=== PATIENT | male | born 1985 | race Caucasian/White ===

== ENCOUNTER 2024-05-25 19:48 | Inpatient (IN) | payer OTHER ==
[2024-05-25 21:03] VITALS: BMI 28.2
[2024-05-25] MEDS ORDERED: chlordiazePOXIDE HCL 25 MG CAPSULE PO PRN (21:44)
[2024-05-25] MEDS ORDERED: BENZONATATE 200 MG CAPSULE PO PRN (21:57)
[2024-05-25] MEDS ORDERED: LOPERAMIDE HCL 2 MG CAPSULE PO PRN (21:57)
[2024-05-25] MEDS ORDERED: guaiFENesin 600 MG TABLET.ER (FP) PO PRN (21:57)
[2024-05-25] MEDS ORDERED: IBUPROFEN 600 MG TABLET (FP) PO PRN (21:57)
[2024-05-25] MEDS ORDERED: P-EPHED 60MG/TRIPROLIDI 2.5MG TABLET PO PRN (21:57)
[2024-05-25] MEDS ORDERED: BISMUTH SUBSALICYLATE 524 MG/30 ML PO PRN (21:57)
[2024-05-25] MEDS ORDERED: IBUPROFEN 400 MG TABLET (FP) PO PRN (21:57)
[2024-05-25] MEDS ORDERED: DICYCLOMINE HCL 10 MG CAPSULE PO PRN (21:57)
[2024-05-25] MEDS ORDERED: BENZOCAINE/MENTHOL (CHLORASEPTIC ) LOZENGE MM PRN (21:57)
[2024-05-25] MEDS ORDERED: NICOTINE POLACRILEX 2 MG LOZENGE BC PRN (21:57)
[2024-05-25] MEDS ORDERED: POLYETHYLENE GLYCOL (HEALTHYLAX) 3350 17 GM PACKET PO PRN (21:57)
[2024-05-25] MEDS ORDERED: MAGNESIUM HYDROX 2400MG/30ML ORAL SUSPENSION 30 ML CUP PO PRN (21:57)
[2024-05-25] MEDS ORDERED: ONDANSETRON *ODT* 4 MG TABLET SL PRN (21:57)
[2024-05-25] MEDS ORDERED: ACETAMINOPHEN 325 MG TABLET (FP) PO PRN (21:57)
[2024-05-25] MEDS ORDERED: NICOTINE POLACRILEX 2 MG GUM BUC PRN (21:57)
[2024-05-25] MEDS ORDERED: METHOCARBAMOL 500 MG TABLET PO PRN (21:57)
[2024-05-25] MEDS ORDERED: MAG HYDROX/AL HYDROX/SIMETH 30 ML UNIT-DOSE CUP PO PRN (21:57)
[2024-05-25] MEDS ORDERED: NALOXONE (NARCAN) HCL 4 MG/0.1 ML SPRAY NS PRN (21:57)
[2024-05-25] MEDS ORDERED: levETIRAcetam 500 MG TABLET (FP) PO ONE (23:46)
[2024-05-25] MEDS ORDERED: METOPROLOL TARTRATE 25 MG TABLET (FP) ONE (23:46)
[2024-05-25] MEDS ORDERED: chlordiazePOXIDE HCL 25 MG CAPSULE ONE (23:46)
[2024-05-25] MEDS: levETIRAcetam 500 MG TABLET (FP) PO SCH (23:47)
[2024-05-25] MEDS: chlordiazePOXIDE HCL 25 MG CAPSULE PO SCH (23:47)
[2024-05-25] MEDS: METOPROLOL TARTRATE 25 MG TABLET (FP) PO ONE (23:48)
[2024-05-26] MEDS: MELATONIN 5 MG TABLETS PO SCH (03:54)
[2024-05-26] MEDS: THIAMINE 100 MG TABLET PO SCH (03:54)
[2024-05-26] MEDS: hydrOXYzine PAMOATE 25 MG CAPSULE (FP) PO PRN (04:04)
[2024-05-26] MEDS: PRENATAL VITAMINS W/ FOLIC ACID TABLET (FP) PO SCH (09:41)
[2024-05-26] MEDS: ESCITALOPRAM OXALATE 10 MG TABLET PO SCH (09:41)
[2024-05-26 11:35] LABS: CHLORIDE 103 mmol/L (98-107); POTASSIUM 3.6 mmol/L (3.5-5.1); SODIUM 139 mmol/L (136-145)
[2024-05-26 11:37] LABS: HEMATOCRIT 40.6 % (35.4-49); HEMOGLOBIN 14.1 GM/dL (11.7-16.9); MCH 31.5 pg (25.7-33.7); MCHC 34.7 g/dl (32.0-35.9); MEAN CELL VOLUME 90.8 fl (80-96); MEAN PLT VOLUME 8.4 fl (7.5-11.1); PLATELET COUNT 236 10^3/uL (134-434); RBC 4.48 M/mm3 (4.00-5.60); RDW 13.3 % (11.9-15.9); WHITE BLOOD COUNT 6.4 K/mm3 (4.0-10.0)
[2024-05-26 11:56] LABS: CALCIUM 9.7 mg/dL (8.5-10.1)
[2024-05-26 11:57] LABS: ALBUMIN 3.6 g/dl (3.4-5.0); ANION GAP 6 mmol/L (4-13); BLOOD UREA NITROGEN 17.7 mg/dL (7-18); CO2 30 mmol/L (21-32); GLUCOSE,RANDOM 98 mg/dL (74-106)
[2024-05-26 12:00] LABS: CREATININE 0.9 mg/dL (0.55-1.3); SGOT/AST 17 U/L (15-37)
[2024-05-26 12:01] LABS: SGPT/ALT 26 U/L (13-61)
[2024-05-26 12:02] LABS: BILIRUBIN,TOTAL 1.2 mg/dL (0.2-1); TOT PROT 6.4 g/dl (6.4-8.2)
[2024-05-26 12:03] LABS: ALK PHOS 42 U/L (45-117)
[2024-05-26 12:52] VITALS: BP 121/81; PULSE 69; RESP 18; TEMP 97.7
[2024-05-26] MEDS: NALOXONE (NYS OPIOID OVERDOSE PROGRAM) 4 MG/0.1 ML SPRAY NS SCH (15:55)
[2024-05-27] MEDS ORDERED: chlordiazePOXIDE HCL 25 MG CAPSULE PO SCH (05:00)
[2024-05-28] MEDS ORDERED: chlordiazePOXIDE HCL 10 MG CAPSULE PO PRN
[2024-05-28] MEDS ORDERED: chlordiazePOXIDE HCL 10 MG CAPSULE PO SCH (05:00)
[2024-05-29] MEDS ORDERED: chlordiazePOXIDE HCL 10 MG CAPSULE PO SCH (05:00)
[2024-05-30] MEDS ORDERED: chlordiazePOXIDE HCL 10 MG CAPSULE PO ONE (05:00)
== END 2024-05-26 15:30 | disposition home or self-care (01) | DRG 897 ==
LOC: YASAS 19:48 → Y3N 23:33
PROVIDERS: ADMIT Allergy & Immunology; ATTEND Allergy & Immunology
PROC: HZ2ZZZZ Detoxification Services for Substance Abuse Treatment (ICD-10-PCS; principal; 2024-05-25)
DX: F10.20 Alcohol dependence, uncomplicated (principal); F17.290 Nicotine dependence, other tobacco product, uncomplicated; F19.24 Other psychoactive substance dependence with psychoactive substance-induced mood disorder; F41.9 Anxiety disorder, unspecified
CPT/HCPCS: 36415; 80053; 80307; 85027; 86780; 93005; 93010